=== PATIENT | male | born 1985 | race Caucasian/White ===

== ENCOUNTER 2017-03-03 21:56 | Emergency (ER) | payer MEDICAID ==
[2017-03-03] MEDS ORDERED: DEXAMETHASONE 4 MG TAB PO ONE (22:14)
--- NOTE | 2017-03-03 22:17 | EDPHY ---
H & P Time Seen by Provider: 03/03/17 22:11 HPI/ROS: CHIEF COMPLAINT: Bee sting HISTORY OF PRESENT ILLNESS: Patient is a 31-year-old man who comes to the emergency department complaining of a bee sting to his right forearm, left ankle and right hand. This happened around 4:00 p.m. today. He took Benadryl this afternoon. He states that it is each in painful knees having trouble sleeping. No respiratory or GI symptoms. He is concerned because he needs to sleep so that he can work tomorrow. REVIEW OF SYSTEMS: Constitutional: denies: chills, fever, recent illness, recent injury EENTM: denies: blurred vision, double vision, nose congestion Respiratory: denies: cough, shortness of breath Cardiac: denies: chest pain, irregular heart rate, lightheadedness, palpitations Gastrointestinal/Abdominal: denies: abdominal pain, diarrhea, nausea, vomiting, blood streaked stools Genitourinary: denies: dysuria, frequency, hematuria, pain Musculoskeletal: denies: joint pain, muscle pain Skin: See HPI Neurological: denies: headache, numbness, paresthesia, tingling, dizziness, weakness Hematologic/Lymphatic: denies: blood clots, easy bleeding, easy bruising Immunologic/allergic: denies: HIV/AIDS, transplant EXAM: GENERAL: Well-appearing, well-nourished and in no acute distress. HEAD: Atraumatic, normocephalic. EYES: Pupils equal round and reactive to light, extraocular movements intact, sclera anicteric, conjunctiva are normal. ENT: TMs normal, nares patent, oropharynx clear without exudates. Moist mucous membranes. NECK: Normal range of motion, supple without lymphadenopathy or JVD. LUNGS: Breath sounds clear to auscultation bilaterally and equal. No wheezes rales or rhonchi. HEART: Regular rate and rhythm without murmurs, rubs or gallops. ABDOMEN: Soft, nontender, normoactive bowel sounds. No guarding, no rebound. No masses appreciated. BACK: No CVA tenderness, no spinal tenderness, step-offs or deformities EXTREMITIES: Normal range of motion, no pitting or edema. No clubbing or cyanosis. NEUROLOGICAL: Cranial nerves II through XII grossly intact. Normal speech, normal gait. 5/5 strength, normal movement in all extremities, normal sensation PSYCH: Normal mood, normal affect. SKIN: Bee sting with moderate amount of swelling to right forearm and left ankle. Sting to the left thumb with no significant swelling. Source: Patient Exam Limitations: No limitations - Medical/Surgical History Hx Asthma: No Hx Chronic Respiratory Disease: No Hx Diabetes: No Hx Cardiac Disease: No Hx Renal Disease: No Hx Cirrhosis: No Hx Alcoholism: No Hx HIV/AIDS: No Hx Splenectomy or Spleen Trauma: No Other PMH: med hx-bipolar, ex meth addict. surg-shoulder - Family History Significant Family History: No pertinent family hx - Social History Smoking Status: Current every day smoker Alcohol Use: Sober Drug Use: None Constitutional: Initial Vital Signs Temperature (C) 36.9 C 03/03/17 22:25 O2 Delivery Mode Room Air Allergies/Adverse Reactions: No Known Allergies Allergy (Verified 03/03/17 22:10) Home Medications: Medication Instructions Recorded Seroquel 12/13/15 Zyprexa 04/26/16 Xanax 03/03/17 Medical Decision Making ED Course/Re-evaluation: I will treat the patient with Decadron which should last for several days and encouraged him to continue taking Benadryl. This should help him sleep tonight. The patient is somewhat disappointed he is not getting stronger pain medication but I do not feel that it is indicated. Differential Diagnosis: Partial list of the Differential diagnosis considered include but were not limited to; allergic reaction, insect sting and although unlikely based on the history and physical exam, I also considered anaphylaxis, cellulitis. I discussed these differential diagnoses and the plan with the patient as well as the usual and expected course. The patient understands that the diagnosis is provisional and that in medicine we are not always correct and that further workup is often warranted. Usual and customary warnings were given. All of the patient's questions were answered. The patient was instructed to return to the emergency department should the symptoms at all worsen or return, otherwise to followup with the physician as we discussed. - Data Points Medications Given: Discontinued Medications Dexamethasone (Decadron) 10 mg PO EDNOW ONE Stop: 03/03/17 22:15 Last Admin: 03/03/17 22:18 Dose: 10 mg Departure - Departure Disposition: Home, Routine, Self-Care Clinical Impression: Insect sting Qualifiers: Encounter type: initial encounter Injury intent: accidental or unintentional Qualified Code(s): T63.481A - Toxic effect of venom of other arthropod, accidental (unintentional), initial encounter Condition: Fair Instructions: Insect Bite or Sting (ED), General Allergic Reaction (ED) Additional Instructions: Take 50 mg of Benadryl when you get home tonight. Continue taking antihistamines tomorrow as we discussed. Referrals: Isiah Dey MD [Medical Doctor] - As per Instructions
[2017-03-03 22:25] VITALS: TEMP 98.4
[2017-03-03 22:28] VITALS: BP 150/98; PULSE 100; RESP 16; O2SAT 95
== END 2017-03-03 22:37 | disposition home or self-care (01) ==
LOC: CED 21:56
DX: T63.481A Toxic effect of venom of other arthropod, accidental (unintentional), initial encounter (principal); F17.200 Nicotine dependence, unspecified, uncomplicated

== ENCOUNTER 2017-05-23 01:30 | Observation (INO) | payer MEDICAID ==
--- NOTE | 2017-05-23 01:40 | EDPHY ---
H & P Time Seen by Provider: 05/23/17 01:40 HPI/ROS: CHIEF COMPLAINT: shortness of breath, cough, fever HISTORY OF PRESENT ILLNESS: 31-year-old male who has a 10 year history of smoking 2 packs a day. All in although, he does not have an underlying history of prior respiratory illness. He has never had a diagnosis of asthma and he has never been using an inhaler. He 1st became ill about 6 days ago with chiefly nasal congestion. This included some stuffiness. Notably those symptoms have disappeared. Date 2-5 he was having gastrointestinal symptoms. This included nausea with vomiting as well as diarrhea. During that time he at times felt dizzy and lightheaded and noted dark urine. However though symptoms have chiefly resolved with his ability to hold down fluids today. However, now he exhibits shortness of breath and wheezing along with a productive cough of some yellow phlegm. He has had episodes of bronchitis in the past and is asking for an antibiotic. Of note, he is not familiar with an inhaler nor has he had any for notable wheezing in the past to his knowledge. He states his bipolar disease is stable. We have discussed the use of prednisone as he presents hypoxic with a pulse oximetry of 87 and even now as we talk he will have an O2 sat of 88 on 3 L nasal cannula. He states that he thinks he will be able to handle it. All things being equal, he is symptomatic enough to repair it therapy. He has had a diffuse achiness across the chest which he relates is probably due to the violent retching that the other day - last emesis 48 hours ago. REVIEW OF SYSTEMS: Constitutional: T-max of 102, however no rigors Eyes: No discharge ENT: No sore throat. Previously nasal congestion has left now Cardiovascular: No chest pain, no palpitations. Respiratory: See above Gastrointestinal: See above. Genitourinary: Dark urine but no blood. Musculoskeletal: No back pain. Skin: No rashes. Neurological: No headache. Although he has had some diffuse body aches. Of note is that he did receive the influenza vaccine 1 month ago. Currently in the community there has been some cases of influenza like illness but no significant spike of positive influenza cases as of yet. 10 point ROS otherwise negative Source: Patient Exam Limitations: No limitations - Personal History Current Tetanus/Diphtheria Vaccine: Yes - Medical/Surgical History Hx Asthma: No Hx Chronic Respiratory Disease: No Hx Diabetes: No Hx Cardiac Disease: No Hx Renal Disease: No Hx Cirrhosis: No Hx Alcoholism: No Hx HIV/AIDS: No Hx Splenectomy or Spleen Trauma: No Other PMH: med hx-bipolar, ex meth addict. surg-shoulder - Social History Smoking Status: Current every day smoker (Two packs a day) Alcohol Use: None Drug Use: Other (Meth addict in recovery) - Physical Exam Exam: General Appearance: Alert, mild distress. Afebrile. Normal phonation. O2 sats drop into 80's while we talk, though he is on 4L NC. Eyes: Pupils equal and round no pallor or injection. No icterus ENT, Mouth: Mucous membranes moist. Pharynx mildly erythematous, no exudate. TM Clear. Sinuses are nontender to palpation. Neck: No adenopathy. Supple. No JVD. Trachea in midline. Respiratory: Diffuse wheezes heard in all lung caldwell particularly course ones on the right with better air entry on the right. There is increased exhalation time, without dullness. Able to speak in 5-6 word sentences. Chest wall: Nontender to palpation. No crepitus. Cardiovascular: Regular rate and rhythm, no murmur Abdomen: Soft and nontender, no masses, bowel sounds normal. Neurological: Ox3. No motor weakness. Sensation intact. Gait nl. Skin: Warm and dry, no rashes. Musculoskeletal: No joint swelling. Extremities: No edema. Homans sign negative. No cords. Psychiatric: Normal affect. Patient is oriented X 3. There is no agitation Constitutional: Initial Vital Signs Temperature (C) 36.6 C 05/23/17 01:35 Heart Rate 96 05/23/17 01:35 Respiratory Rate 18 05/23/17 01:35 Blood Pressure 161/85 H 05/23/17 01:35 O2 Sat (%) 89 L 05/23/17 01:35 O2 Delivery Mode Nasal Cannula O2 (L/minute) 4 Allergies/Adverse Reactions: No Known Allergies Allergy (Verified 05/23/17 01:39) Home Medications: Medication Instructions Recorded Seroquel 12/13/15 Zyprexa 04/26/16 Xanax 03/03/17 Medical Decision Making - Diagnostics EKG Interpretation: EKG: Interpreted by me contemporaneously. Rhythm: [Normal sinus rhythm.] Heart rate [110 ] QTc 421 QRS: [normal] STT segment: [mild sag seen inferiorly in 2 3 and F as well as laterally in V5 V6 ] T Waves: T-wave inversions in coving in 2 3 and F. Q waves [none] Summary: Borderline EKG with T-wave abnormalities seen inferolaterally Imaging Results: Chest x-ray: Two view chest. Interpreted by [me, contemporaneously]. Films reviewed by me on the PACS system. Normal mediastinum. Normal lung caldwell. No effusions. Moderate hyper expansion, no pneumothorax. No pneumonia. Imaging: I viewed and interpreted images myself ED Course/Re-evaluation: From the beginning he clearly was in December and would benefit significantly by prednisone therapy. However, I was concerned given his underlying psychiatric illness. We talked about this and of note is that he has never had prednisone before. He states that is bipolar disease has been stable and does not for see having a problem. Granted, that may not be the case however the prednisone is strongly indicated and could be withdrawn if he has troubles. Thus given the risk benefit question he will be started on p.o. prednisone here. He was 1st given a Ventolin treatment followed by a DuoNeb. Then sent for chest x-ray. Chest x-ray reviewed by me and essentially negative except for hyper expansion. See report above. He has no risk factors for DVT/pulmonary embolus. After his 1st 2 breathing treatments, he had improved ventilation with better air entry and decreased wheezing with less sonorous rhonchi. However, he remains hypoxic. In particular off oxygen after ambulating to the x-ray department his pulse oximetry was 84%, placed back on oxygen at that time. Also initiated a continuous neb of 3 back to back Proventil treatments. He was reassessed after the breathing treatment. He continues to have moderate wheezing with significant hypoxia down to 85% room air. I have advised admission to the [facility] for hypoxia persistent severe as status asthmaticus. He concurs. At this point will go ahead and get some blood work started, EKG and contact the hospital I have discussed the case with Dr. Hu at the [facility]. He requests a influenza screen and the patient be sent to the hospital. I discussed the patient hospitalization as well as transfer via ambulance. Given his degree of hypoxia and EKG changes that is certainly the most prudent course of action. The patient is concerned regarding cost. He seems motivated to actually go to the hospital however. He has made arrangements with his mother. I have explained to him at length the potential risks with suspected test or disability stroke collapse etc. He assumes that risk. We made a plan to send a oxygen take with him. I was too worried to do otherwise. Cautions and warnings and safety of transport was explained to him at length Differential Diagnosis: Diagnostic considerations include, but are not limited to, the following: URI, sinusitis, pharyngitis, otitis media, pneumonia, allergy, influenza, asthma , status asthmaticus. Critical Care Time: I spent a total of [90] minutes of critical care time in obtaining history, performing a physical exam, bedside monitoring of interventions, collecting and interpreting tests and discussion with consultants but not including time spent performing procedures. - Data Points Medications Given: Discontinued Medications Albuterol (Proventil Neb) 3 ml IH EDNOW ONE Stop: 05/23/17 01:56 Last Admin: 05/23/17 02:05 Dose: 3 ml Albuterol (Proventil Neb) 9 ml IH CONT ONE Stop: 05/23/17 02:52 Last Admin: 05/23/17 02:56 Dose: 9 ml Albuterol/Ipratropium (Duoneb) 3 ml IH EDNOW ONE Stop: 05/23/17 01:56 Last Admin: 05/23/17 02:15 Dose: 3 ml Prednisone (Prednisone) 60 mg PO EDNOW ONE Stop: 05/23/17 01:56 Last Admin: 05/23/17 02:04 Dose: 60 mg Departure - Departure Disposition: [facility] Inpatient Acute Clinical Impression: Hypoxia Unspecified asthma with status asthmaticus Qualifiers: Asthma severity: severe Asthma persistence: persistent Qualified Code(s): J45.52 - Severe persistent asthma with status asthmaticus Condition: Critical
[2017-05-23] MEDS ORDERED: ALBUTEROL 3 ML DEYVIAL IH ONE ×2 (01:55→02:51)
[2017-05-23] MEDS ORDERED: predniSONE 20 MG TAB PO ONE (01:55)
[2017-05-23] MEDS ORDERED: IPRATROPIUM/ALBUTEROL 3 ML DEYVIAL IH ONE (01:55)
--- NOTE | 2017-05-23 03:57 | CPEKG ---
Heart Rate: 110 RR Interval: 545 P-R Interval: 148 QRSD Interval: 96 QT Interval: 344 QTC Interval: 466 P Alley[place]: 56 QRS [place]: 54 T Wave [place]: -13 EKG Severity - BORDERLINE ECG - EKG Impression: SINUS TACHYCARDIA EKG Impression: BORDERLINE T ABNORMALITIES, INFERIOR LEADS Electronically Signed By: Solitario Morrison 23-May-2017 04:01:11
[2017-05-23 04:17] LABS: % IMMATURE GRANULYOCYTES 0.5 % (0.0-1.1); ABSOLUTE IMMATURE GRANULOCYTES 0.07 10^3/uL (0.00-0.10); ADD DIFF? NO; ADD MORPH? NO; ADD SCAN? NO; ATYPICAL LYMPHOCYTE FLAG 20 (0-99); FRAGMENT RBC FLAG 0 (0-99); HEMATOCRIT 43.8 % (40.0-51.0); LEFT SHIFT FLG 0 (0-99); LIPEMIA HEMOLYSIS FLAG 90 (0-99); MEAN CELL HEMOGLOBIN 29.2 pg (27.9-34.1); MEAN CELL HEMOGLOBIN CONCENTR. 34.2 g/dL (32.4-36.7); MEAN CELL VOLUME 85.4 fL (81.5-99.8); MEAN PLATELET VOLUME 10.3 fL (8.7-11.7); PLATELET CLUMPS FLAG 0 (0-99); PLATELET COUNT 238 10^3/uL (150-400); RED BLOOD CELL COUNT 5.13 10^6/uL (4.40-6.38); RED CELL DISTRIBUTION WIDTH 12.9 % (11.5-15.2)
[2017-05-23 04:28] LABS: ANION GAP 15 mEq/L (8-16); CALCIUM 8.8 mg/dL (8.5-10.4); CARBON DIOXIDE 25 mEq/l (22-31); CHLORIDE 102 mEq/L (97-110); CREATININE 0.8 mg/dL (0.7-1.3); GLOMERULAR FILTRATION RATE > 60; GLUCOSE 118 mg/dL (70-100); POTASSIUM 3.5 mEq/L (3.5-5.2); SODIUM 142 mEq/L (134-144)
[2017-05-23 04:43] LABS: TROPONIN I < 0.012 ng/mL (0.000-0.034)
[2017-05-23] MEDS ORDERED: ONDANSETRON 4 MG/2 ML VIAL IVP PRN (04:45)
[2017-05-23] MEDS ORDERED: ACETAMINOPHEN 325 MG TAB PO PRN (04:45)
[2017-05-23] MEDS ORDERED: ONDANSETRON DISINTEGRATING 4 MG TAB PO PRN (04:45)
[2017-05-23] MEDS ORDERED: ALBUTEROL 3 ML DEYVIAL IH PRN (04:47)
[2017-05-23] MEDS ORDERED: AZITHROMYCIN 250 MG TAB PO ONE ×2 (04:48→08:45)
--- NOTE | 2017-05-23 04:54 | PDGENHP ---
History and Physical - Chief Complaint Shortness of Breath - History of Present Illness 31 yo M w/ hx of BPD and prior methamphetamine abuse presents to [facility] with shortness of breath. Per patient, symptoms started 6 days ago with URI symptoms. He then developed GI symptoms for a few days, which are now beginning to resolve. Over the last day, however, he began to develop fevers, shortness of breath, and productive cough. He denies prior history of respiratory disease but he does smoke 2 packs of cigarettes daily. He states his bipolar disorder is well controlled. He has a history of significant drug abuse. He smoked meth for 5 years and heroin occasionally but has not done so sine 2011. History Information - Allergies/Home Medication List Allergies/Adverse Reactions: No Known Allergies Allergy (Verified 05/23/17 01:39) Home Medications: Seroquel 12/13/15 [Last Taken Unknown] Zyprexa 04/26/16 [Last Taken Unknown] Xanax 03/03/17 [Last Taken Unknown] I have personally reviewed and updated: family history, medical history - Past Medical History Additional medical history: Bipolar disorder - Social History Smoking Status: Current every day smoker (Two packs a day) Alcohol Use: None Drug Use: Other (Meth addict in recovery) Review of Systems Review of Systems: ROS: 10pt was reviewed & negative except for what was stated in HPI & below Physical Exam Physical Exam: Temp Pulse Resp BP Pulse Ox 36.7 C 118 H 22 H 123/80 H 90 L 05/23/17 03:57 05/23/17 03:57 05/23/17 03:57 05/23/17 03:57 05/23/17 04:08 Constitutional: no apparent distress, not in pain Eyes: PERRL, EOMI Ears, Nose, Mouth, Throat: moist mucous membranes, no oral mucosal ulcers Cardiovascular: regular rate and rhythym, no murmur, rub, or gallop Respiratory: no respiratory distress, expiratory wheeze (Diffuse), rhonchi ( Diffuse) Gastrointestinal: normoactive bowel sounds, soft, non-tender abdomen Skin: warm, normal color Musculoskeletal: full muscle strength, no muscle tenderness Neurologic: AAOx3, CN II-XII Intact Lab Data & Imaging Review 05/23/17 04:14 05/23/17 04:14 WBC 14.12 10^3/uL (3.80-9.50) H 05/23/17 04:14 RBC 5.13 10^6/uL (4.40-6.38) 05/23/17 04:14 Hgb 15.0 g/dL (13.7-17.5) 05/23/17 04:14 Hct 43.8 % (40.0-51.0) 05/23/17 04:14 MCV 85.4 fL (81.5-99.8) 05/23/17 04:14 MCH 29.2 pg (27.9-34.1) 05/23/17 04:14 MCHC 34.2 g/dL (32.4-36.7) 05/23/17 04:14 RDW 12.9 % (11.5-15.2) 05/23/17 04:14 Plt Count 238 10^3/uL (150-400) 05/23/17 04:14 MPV 10.3 fL (8.7-11.7) 05/23/17 04:14 Neut % (Auto) 82.7 % (39.3-74.2) H 05/23/17 04:14 Lymph % (Auto) 9.6 % (15.0-45.0) L 05/23/17 04:14 Sabine % (Auto) 6.3 % (4.5-13.0) 05/23/17 04:14 Eos % (Auto) 0.6 % (0.6-7.6) 05/23/17 04:14 Baso % (Auto) 0.3 % (0.3-1.7) 05/23/17 04:14 Nucleat RBC Rel Count 0.0 % (0.0-0.2) 05/23/17 04:14 Absolute Neuts (auto) 11.67 10^3/uL (1.70-6.50) H 05/23/17 04:14 Absolute Lymphs (auto) 1.36 10^3/uL (1.00-3.00) 05/23/17 04:14 Absolute Monos (auto) 0.89 10^3/uL (0.30-0.80) H 05/23/17 04:14 Absolute Eos (auto) 0.09 10^3/uL (0.03-0.40) 05/23/17 04:14 Absolute Basos (auto) 0.04 10^3/uL (0.02-0.10) 05/23/17 04:14 Absolute Nucleated RBC 0.00 10^3/uL (0-0.01) 05/23/17 04:14 Immature Gran % 0.5 % (0.0-1.1) 05/23/17 04:14 Immature Gran # 0.07 10^3/uL (0.00-0.10) 05/23/17 04:14 Sodium 142 mEq/L (134-144) 05/23/17 04:14 Potassium 3.5 mEq/L (3.5-5.2) 05/23/17 04:14 Chloride 102 mEq/L (97-110) 05/23/17 04:14 Carbon Dioxide 25 mEq/l (22-31) 05/23/17 04:14 Anion Gap 15 mEq/L (8-16) 05/23/17 04:14 BUN 19 mg/dL (7-23) 05/23/17 04:14 Creatinine 0.8 mg/dL (0.7-1.3) 05/23/17 04:14 Estimated GFR > 60 05/23/17 04:14 Glucose 118 mg/dL (70-100) H 05/23/17 04:14 Calcium 8.8 mg/dL (8.5-10.4) 05/23/17 04:14 Magnesium 2.0 mg/dL (1.6-2.3) 05/23/17 04:14 Troponin I < 0.012 ng/mL (0.000-0.034) 05/23/17 04:14 Influenza A,B Rapid NEGATIVE FOR FLU (NEGATIVE) 05/23/17 04:20 Visualized and Interpreted Chest x-ray results: Yes Chest X-Ray results: no infiltrate EKG Interpretation: Positive for: normal sinsus rhythm, Q waves (III), T waves inversion (III, AVF) Assessment & Plan Assessment: 31 yo M w/ BPD, past hx of methamphetamine abuse, and significant tobacco use presents with likely viral illness complicated by significant bronchospasm and hypoxia. Plan: 1. Likely viral respiratory infection complicated by bronchospasm - No prior hx of asthma; does have significant tobacco use (2 PPD) but likely too young for true COPD. However, 5 year history of smoking meth could have led to structural lung disease. Suspect viral illness leading to significant bronchospasm with some underlying predisposition. - Albuterol q4h sched + q2h PRN - Azithromycin, prednisone x5 days 2. AHRF - Mild, 2/2 above. Currently requiring 2-3 L/min O2 via NC to maintain sats. Low suspicion for thromboembolic disease at this time noting lack of risk factors. Troponin negative. -3 - Acute treatment as above - Wean O2 as able 3. BPD - Well controlled on home Zyprexa and Seroquel. 4. Hx of methamphetamine use - Reports current sobriety, will check Utox noting that methamphetamine use could precipitate bronchospasm. 5. Tobacco use disorder - Smokes ~2 packs daily. Trying to quit, will order NRT. Diet - Regular Code - Full Ppx - Low risk Dispo - Admit to observation status
[2017-05-23] MEDS: ALBUTEROL 3 ML DEYVIAL IH SCH ×6 (06:29→22:22)
[2017-05-23] MEDS ORDERED: NICOTINE 21 MG/24 HR PATCH TD ONE (06:31)
[2017-05-23] MEDS ORDERED: IBUPROFEN 200 MG TAB PO PRN (09:25)
[2017-05-23 09:35] LABS: PHENCYCLIDINE URINE BCH < 6 ng/ml (NEGATIVE); PHENCYCLIDINE URINE BCH NEGATIVE (NEGATIVE); TETRAHYDROCANNABINOL URINE < 5 ng/mL (NEGATIVE); TETRAHYDROCANNABINOL URINE NEGATIVE (NEGATIVE)
[2017-05-23] MEDS: OLANZapine 2.5 MG TAB PO SCH (10:06)
[2017-05-23] MEDS: ALPRAZolam 1 MG TAB PO SCH (10:06)
[2017-05-23] MEDS: NICOTINE 21 MG/24 HR PATCH TD SCH (10:06)
--- NOTE | 2017-05-23 10:50 | HOSPPROG ---
Hospitalist Progress Note Assessment/Plan: 31 male with SOB. #URI cont nebs azithro pred #AHRF cont O2 #Bipolar stable on meds #Tobacco abuse education patch #Dispo unclear still on O2 follow Subjective: Feeling a bit better. Breathing better. Objective: Vital Signs Temp Pulse Resp BP Pulse Ox 36.8 C 100 17 135/61 H 92 05/23/17 08:00 05/23/17 10:11 05/23/17 10:11 05/23/17 08:00 05/23/17 10:11 Laboratory Results 05/23/17 04:14 05/23/17 04:14 05/22/17 05/23/17 05/24/17 05:59 05:59 05:59 Intake Total 0 Balance 0 - Physical Exam Constitutional: appears nourished, not in pain Eyes: PERRL, anicteric sclera Ears, Nose, Mouth, Throat: moist mucous membranes, hearing normal Cardiovascular: No JVD, No edema Respiratory: reduced air movement Gastrointestinal: No tenderness, No ascites Skin: warm, normal color Musculoskeletal: generalized weakness Neurologic: AAOx3 Psychiatric: thought process linear, anxious ICD10 Worksheet Patient Problems: Problems Problem Status Onset Unspecified asthma with status asthmaticus Acute Hypoxia Acute
--- NOTE | 2017-05-23 15:01 | ASMTCMCOM ---
CM Note CM Note Notes: Spoke w/RN, pt will likely dc w/support of mother when medically stable. CM available for any changes. Date Signed: 05/23/2017 03:00 PM Electronically Signed By:Kiera Charles RN
[2017-05-23] MEDS ORDERED: QUEtiapine FUMARATE 200 MG TAB PO SCH (21:00)
[2017-05-24] MEDS: ALPRAZolam 1 MG TAB PO SCH ×2 (01:02→08:28)
[2017-05-24 04:46] VITALS: RESP 18
[2017-05-24] MEDS: ALBUTEROL 3 ML DEYVIAL IH SCH ×2 (06:12→11:57)
[2017-05-24] MEDS: NICOTINE 21 MG/24 HR PATCH TD SCH (07:12)
[2017-05-24] MEDS ORDERED: AZITHROMYCIN 250 MG TAB PO SCH (09:00)
[2017-05-24] MEDS ORDERED: MULTIVITAMINS 1 EACH TAB PO SCH (09:00)
[2017-05-24] MEDS ORDERED: predniSONE 20 MG TAB PO SCH (09:00)
[2017-05-24] MEDS: OLANZapine 2.5 MG TAB PO SCH (10:36)
--- NOTE | 2017-05-24 11:30 | PDHOMEO2F ---
Home Oxygen Face to Face Home Orders: I certify that a physician or a nurse practitioner or physician's fish hatchery assistant has had a [id number] encounter with this patient on the date of this order due to the diagnosis listed, which relates to the primary reason the patient requires home oxygen. Alternative treatments have been tried, or considered, and deemed ineffective. It is anticipated that supplemental oxygen will result in improvement with treatment. Home oxygen qualifying diagnosis: CAP SpO2 on room air (%): 82 Frequency of home oxygen needed: continuous Home oxygen liters per minute: 2 Home oxygen delivery device: nasal cannula Concentrator: Yes E-tanks for mobility and back up: Yes If ordering portable O2, is the patient mobile in the home?: Yes I certify that, based on these findings, the home oxygen is medically necessary for this patient for the following length of time. Length of time home oxygen needed: 1 week (or longer depending on recovery)
[2017-05-24 11:50] VITALS: BP 103/78; TEMP 97.5
[2017-05-24 12:06] VITALS: PULSE 88; O2SAT 91
--- NOTE | 2017-05-24 13:34 | GDS ---
[f rep st] DISCHARGE SUMMARY DISCHARGE DIAGNOSES: 1. Upper respiratory infection. 2. Acute hypoxemic respiratory failure. 3. Bipolar disorder. 4. Chronic tobacco abuse. PHYSICAL EXAM: GENERAL: The patient is alert. VITAL SIGNS: Afebrile at 36.6, pulse is 80, respira tory rate is 18, blood pressure is 106/57, he is saturating 86% on room air and 91% on 2 L. HOSPITAL COURSE: The patient is a 31-year-old male who presented to the emergency room with complain ts of shortness of breath. He was evaluated and diagnosed with. 1. Upper respiratory infection. During this hospitalization, he has been treated with nebulizers as well as azithromycin and prednisone. His condition is improving however he still is fairly ill. He will continue these therapies in the outpatient setting. 2. Acute hypoxemic respiratory failure. He does require supplemental oxygen. His room air saturati on is 86%. I have ordered 24 hour oxygen supplementation for him and recommend that he follow up in the outpatient setting with his primary care physician, and get a sleep study when his acute infectio us process resolves. 3. Bipolar disorder. He is stable on his medications. 4. Tobacco abuse. He has received significant education as well as nicotine patches. He will jamie nue these in the outpatient setting and desires to discontinue his tobacco abuse. DISPOSITION: The patient will be discharged home with supplemental oxygen. I reviewed his dispositi on with the nurse as well as the respiratory therapist. There are no other pending studies. DISCHARGE MEDICATIONS: I have provided the patient a prescription for azithromycin as well as predni sone. Please refer to EMR form for his other primary medications. /[id number]/MODL
--- NOTE | 2017-05-24 13:47 | ASDISCHSUM ---
Discharge Information Plan Status:Home with No Needs Medically Cleared to Leave:05/24/2017 Discharge Date:05/24/2017 12:53 PM CM D/C Disposition: ADT D/C Disposition:Home, Routine, Self-Care Projected Discharge Date:05/24/2017 12:00 AM Transportation at D/C: Discharge Delay Reason: Follow-Up Date:05/24/2017 12:00 AM Discharge Slot: Final Diagnosis: Placement Information Patient Contact Information Contact Name:A[place] Relationship:Mother Address:[address] City:[place] Alternate Phone: [facility]/Zip Code:[place] [address] Email: Financial Information Financial Class: Primary Plan Desc:[employer] Primary Plan Number:[id number] Secondary Plan Desc: Secondary Plan Number: Assessment Information [facility] CM Progress Note CM Note CM Note Notes: Spoke w/RN, pt will likely dc w/support of mother when medically stable. CM available for any changes. Date Signed: 05/23/2017 03:00 PM Electronically Signed By:Kiera Charles RN Intervention Information
== END 2017-05-24 12:53 | disposition home or self-care (01) ==
LOC: CED 01:30 → CEDHOLD 04:09 → F3E 06:10
PROVIDERS: ADMIT Student in an Organized Health Care Education/Training Program; ATTEND Student in an Organized Health Care Education/Training Program
DX: J06.9 Acute upper respiratory infection, unspecified (principal); J96.01 Acute respiratory failure with hypoxia; F17.210 Nicotine dependence, cigarettes, uncomplicated; F31.9 Bipolar disorder, unspecified; F15.21 Other stimulant dependence, in remission; F11.21 Opioid dependence, in remission
CPT/HCPCS: 71020; 93005; 99291; 99292; G0378; 80048-PO; 80307; 83735-PO; 84484-PO; 85025-PO; 87400-PO; G0480

== ENCOUNTER 2018-07-19 15:50 | Emergency (ER) | payer MEDICAID ==
[2018-07-19 16:04] VITALS: BP 149/83
--- NOTE | 2018-07-19 16:09 | EDPHY ---
H & P Time Seen by Provider: 07/19/18 16:04 HPI/ROS: CHIEF COMPLAINT: Right hand pain HISTORY OF PRESENT ILLNESS: Patient is a 32-year-old male who presents emergency department with ongoing right hand pain after striking a window approximately 6 months ago. He primarily complains of pain over his middle finger knuckle. Patient states pain is slightly worse with movement. He has had mild swelling that is not resolved. No numbness or tingling REVIEW OF SYSTEMS: Negative Past Medical/Surgical History: Previous methamphetamine abuse, bipolar disorder Shoulder surgery Smoking Status: Current every day smoker Physical Exam: Vitals noted General Appearance: Alert and no distress. Head: Pupils equal. Normal. Respiratory: No respiratory distress. Cardiac: regular rate and rhythm. Extremities: Patient has mild swelling over his right middle finger all knuckle. There is mild tenderness palpation. Neurovascular intact distally Skin: No rashes or lesions. Neuro: Alert. Normal mood and affect. Constitutional: Initial Vital Signs Temperature (C) 36.9 C 07/19/18 16:00 Heart Rate 83 07/19/18 16:00 Respiratory Rate 18 07/19/18 16:00 Blood Pressure 149/83 H 07/19/18 16:00 O2 Sat (%) 95 07/19/18 16:00 O2 Delivery Mode Room Air Allergies/Adverse Reactions: No Known Allergies Allergy (Verified 07/19/18 15:59) Home Medications: Medication Instructions Recorded Xanax 07/19/18 Medical Decision Making - Diagnostics Imaging Results: Imaging Impressions Hand X-Ray 07/19/18 16:03 Impression: Localized soft tissue swelling without underlying bone or joint abnormality. ED Course/Re-evaluation: In the emergency department I discussed possible etiologies with the patient. I answered all his questions. He consented to a right hand x-ray: Right hand x-ray: No acute disease noted. No fracture dislocation. I discussed the results with the patient. I answered all his questions. He was given follow-up with Hand surgery. Differential Diagnosis: My differential includes but is not limited to hand contusion, fracture, dislocation, foreign body Departure - Departure Disposition: Home, Routine, Self-Care Clinical Impression: Hand injury Qualifiers: Encounter type: initial encounter Laterality: right Qualified Code(s): S69.91XA - Unspecified injury of right wrist, hand and finger(s), initial encounter Condition: Good Instructions: Hand Sprain (ED) Referrals: Armando Mcqueen MD [Medical Doctor] - 5-7 days, call for appt.
== END 2018-07-19 16:25 | disposition home or self-care (01) ==
LOC: CED 15:50
DX: S69.91XA Unspecified injury of right wrist, hand and finger(s), initial encounter (principal); F17.200 Nicotine dependence, unspecified, uncomplicated
CPT/HCPCS: 73130-PO